=== PATIENT | male | born 1980 | race Hispanic/Latino ===

== ENCOUNTER 2017-04-08 19:45 | Inpatient (IN) | payer OTHER ==
[2017-04-08] MEDS ORDERED: Sodium Chloride 0.9% 1,000 ML IV STA (20:53)
[2017-04-08] MEDS ORDERED: Iohexol 240 (50 ml) PO ONE (20:53)
[2017-04-08] MEDS ORDERED: Iohexol 240 (50 ml) ONE (21:00)
[2017-04-08 21:22] LABS: BASO % 0.5 % (0.0-2.0); EOS # 0.2 K/uL (0.0-0.7); EOS % 2.5 % (0.0-4.0); HEMATOCRIT 43.5 % (35.0-51.0); LYMPH # 1.8 K/uL (1.0-4.3); LYMPH % 25.9 % (20.0-40.0); MEAN CELL VOLUME 91.8 fl (80.0-94.0); MEAN CORPUSCULAR HEMOGLOBIN 32.1 pg (27.0-31.0); MEAN PLATELET VOLUME 8.1 fl (7.2-11.7); MONO # 1.1 K/uL (0.0-0.8); MONO % 15.7 % (0.0-10.0); NEUT # 3.8 K/uL (1.8-7.0); NEUT % 55.4 % (50.0-75.0); RED CELL DISTRIBUTION WIDTH 12.5 % (11.5-14.5); WHITE BLOOD COUNT 6.8 K/uL (4.8-10.8)
[2017-04-08 21:36] LABS: ALB/GLOB RATIO 1.4 (1.0-2.1); ALKALINE PHOSPHATASE 40 U/L (38-126); ALT/SGPT 40 U/L (21-72); AST/SGOT 28 U/L (17-59); BILIRUBIN,TOTAL 1.7 mg/dl (0.2-1.3); BLOOD UREA NITROGEN 18 mg/dl (9-20); CALCIUM 8.5 mg/dL (8.4-10.2); CARBON DIOXIDE 32 mmol/L (22-30); CHLORIDE 101 mmol/L (98-107); GFR AFRICAN-AMERICAN > 60; GLUCOSE,RANDOM 90 mg/dL (75-110); LIPASE 57 U/L (23-300); POTASSIUM 3.6 MMOL/L (3.6-5.0); SODIUM 141 mmol/l (132-148); TOTAL PROTEIN 7.1 G/DL (6.3-8.2)
[2017-04-08 21:45] LABS: RBC URINE 1 /hpf (0-3); URINE BACTERIA RARE (<OCC); URINE BILIRUBIN NEGATIVE (NEGATIVE); URINE BLOOD NEGATIVE (NEGATIVE); URINE COLOR YELLOW (YELLOW); URINE GLUCOSE (UA) NEG (Normal); URINE KETONE NEGATIVE (NEGATIVE); URINE LEUKOCYTE ESTERASE NEG Leu/uL (Negative); URINE PROTEIN NEGATIVE (NEGATIVE); WBC URINE 1 /hpf (0-5)
[2017-04-08] MEDS ORDERED: Sodium Chloride 0.9% 50 ML IV ONE (22:36)
[2017-04-08] MEDS ORDERED: Iohexol 300 100 ML IJ ONE (22:36)
[2017-04-08] MEDS ORDERED: Iodixanol 320 MG/ML 100 ML BOTTLE IV ONE (22:41)
[2017-04-08] MEDS ORDERED: Oxycodone/Acetaminophen 5/325 mg Tab PO STA (23:58)
[2017-04-09] MEDS ORDERED: Simethicone 40 mg/0.6 ml Liquid (30 ml) PO STA (00:34)
[2017-04-09] MEDS ORDERED: Oxycodone/Acetaminophen 5/325 mg Tab ONE (00:42)
--- NOTE | 2017-04-09 00:50 | ED PDOC ---
"HPI: Abdomen Time Seen by Provider: 04/08/17 20:19 Chief Complaint (Nursing): Abdominal Pain Chief Complaint (Provider): abdominal pain History Per: Patient History/Exam Limitations: no limitations Associated Symptoms: Nausea, Loss Of Appetite. denies: Fever, Chills, Vomiting , Diarrhea, Back Pain, Chest Pain, Constipation, Urinary Symptoms Additional Complaint(s): 37yo M in ED for eval of diffuse abdominal pain with increased gas, nausea without vomiting and loose stool without fever, chills. Pt does admit to malaise and muscle cramping x 3d. Pt has had decreased PO intake. Pt admits to consuming salade with chicken over the weekend and noting discomfort since then. pt also c/o of SOB was seen at his pmd today and received an xray-normal results. PERC negative. Past Medical History Reviewed: Historical Data, Nursing Documentation, Vital Signs Vital Signs: Last Vital Signs Temp 98.6 F 04/08/17 23:54 Pulse 65 04/08/17 23:54 Resp 17 04/08/17 23:54 BP 124/67 04/08/17 23:54 Pulse Ox 98 04/09/17 01:10 - Medical History PMH: No Chronic Diseases - Family History Family History: States: No Known Family Hx - Home Medications Home Medications: Ambulatory Orders Medication Instructions Recorded Ibuprofen [Motrin] 600 mg PO Q6 PRN #20 tab 11/10/14 Ciprofloxacin HCl [Cipro] 500 mg PO BID #14 tab 04/09/17 Dicyclomine [Bentyl] 20 mg PO TID #16 tab 04/09/17 Metronidazole [Flagyl] 500 mg PO BID #14 tab 04/09/17 Simethicone [Gas-X Ultra Strength] 180 mg PO BID #20 sgl 04/09/17 - Allergies Allergies/Adverse Reactions: Allergies Allergy/AdvReac Type Severity Reaction Status Date / Time Penicillins Allergy RASH Verified 04/08/17 20:01 Review of Systems ROS Statement: Except As Marked, All Systems Reviewed And Found Negative Respiratory: Positive for: Shortness of Breath. Negative for: Cough Gastrointestinal: Positive for: Nausea, Abdominal Pain. Negative for: Vomiting , Diarrhea, Melena, Hematochezia, Hematemesis - Laboratory Results Result Diagrams: 04/08/17 21:15 04/08/17 21:15 - ECG ECG Rhythm: Positive for: Normal QRS, Normal ST Segment, Sinus Bradycardia O2 Sat by Pulse Oximetry: 98 - Progress ED Course And Treament: pt will get CT of abd to r/o infectious process and CT of chest with contrast r/ o PE for D-dimer is elevated. Orders Category Date Time Status ABD PELVIS PO & IV CONTRAST [CT] Stat CT 04/08/17 20:52 Taken CHEST,ABD,PEL W/IV&PO CONTRAST [CT] Stat CT 04/08/17 22:34 Taken ELECTROCARDIOGRAM Stat Cardiology 04/08/17 20:53 Ordered COMP METABOLIC PANEL Stat Chem 04/08/17 21:15 Completed LIPASE Stat Chem 04/08/17 21:15 Completed EKG-ED [EDNURTX] STAT ED Care 04/08/17 20:53 Active CHEST TWO VIEWS (PA/LAT) [RAD] Stat Exams 04/08/17 20:52 Stop Req CBC (WITH DIFFERENTIAL) Stat OLIVIA 04/08/17 21:15 Completed D DIMER [COAG] Stat OLIVIA 04/08/17 21:25 Completed Dicyclomine [Bentyl] Med 04/08/17 21:00 Discontinued 20 mg .ROUTE .STK-MED ONE Dicyclomine [Bentyl] Med 04/08/17 20:54 Discontinued 20 mg PO STAT STA Iodixanol [Visipaque 320 mg/ml 100 ml] Med 04/08/17 22:41 Discontinued 100 ml IV .STK-MED ONE Iohexol [Omnipaque 240 (50 ML)] Med 04/08/17 21:00 Discontinued 50 ml .ROUTE .STK-MED ONE Iohexol [Omnipaque 240 (50 ML)] Med 04/08/17 20:53 Discontinued 50 ml PO ONCE ONE Iohexol [Omnipaque 300 100 ML] Med 04/08/17 22:36 Discontinued 100 ml IJ .STK-MED ONE Ketorolac [Toradol] Med 04/08/17 22:21 Discontinued 30 mg IVP STAT STA Ondansetron [Zofran Inj] Med 04/08/17 21:00 Discontinued 4 mg .ROUTE .STK-MED ONE Ondansetron [Zofran Inj] Med 04/08/17 20:53 Discontinued 4 mg IVP STAT STA Simethicone [Mylicon Liq] Med 04/09/17 00:34 Discontinued 40 mg PO STAT STA Sodium Chloride 0.9% 1,000 ml Med 04/08/17 20:53 Discontinued IV 1,000 mls/hr Sodium Chloride 0.9% 50 ml Med 04/08/17 22:36 Discontinued IV .STK-MED oxyCODONE/Acetaminophen [Percocet 5/325 mg Tab] Med 04/09/17 00:42 Discontinued 1 tab .ROUTE .STK-MED ONE oxyCODONE/Acetaminophen [Percocet 5/325 mg Tab] Med 04/08/17 23:58 Discontinued 1 tab PO STAT STA Pail Bailer ONCE NURSING 04/08/17 20:53 Active IV Insertion (Saline Lock) ONCE NURSING 04/08/17 20:53 Active UA [URINALYSIS] Stat URINALYSIS 04/08/17 21:15 Completed Re-evaluation Time: 01:10 Condition: Improving,but remains with symptoms Medical Decision Making Medical Decision Making: Lower thorax: No acute findings. ABDOMEN: Liver: Unremarkable. No mass. Gallbladder and bile ducts: Unremarkable. No calcified stones. No ductal dilation. Pancreas: Unremarkable. No mass. No ductal dilation. Spleen: Unremarkable. No splenomegaly. Adrenals: Unremarkable. No mass. Kidneys and ureters: Unremarkable. No solid mass. No hydronephrosis. Stomach and bowel: Mild diffuse gas filled distention of the large bowel.There is no wall thickening or pericolonic stranding to suggest colitis. Moderately distended loops of mid small bowel. The distal small bowel tapers to normal caliber. There is contrast in the distal small bowel. Appendix: A normal appendix is identified. PELVIS: DANIEL RYAN | Preliminary Radiology Report Page 2 of 3 Bladder: Unremarkable. No mass. Reproductive: Unremarkable as visualized. ABDOMEN and PELVIS: Intraperitoneal space: Unremarkable. No free air. No significant fluid collection. Bones/joints: No acute fracture. No dislocation. Soft tissues: Unremarkable. Vasculature: Unremarkable. No abdominal aortic aneurysm. Lymph nodes: Unremarkable. No enlarged lymph nodes. IMPRESSION: Diffuse small and large bowel distention favoring ileus. EXAM: CT Angiography Chest With Intravenous Contrast CLINICAL HISTORY: 37 years old, male; Signs and symptoms; Abdominal tenderness; Additional info: SOB elevated ddimer TECHNIQUE: Axial computed tomographic angiography images of the chest with intravenous contrast using pulmonary embolism protocol. MIP reconstructed images were created and reviewed. Coronal and sagittal reformatted images were created and reviewed. CONTRAST: 100 mL of [id number] administered intravenously. COMPARISON: No relevant prior studies available. FINDINGS: Pulmonary arteries: There is subpleural atelectasis of the dependent portions of the lungs. No pulmonary embolism. Aorta: No acute findings. No thoracic aortic aneurysm. Lungs: Unremarkable. No mass. No consolidation. Pleural space: Unremarkable. No significant effusion. No pneumothorax. Heart: Unremarkable. No cardiomegaly. No significant pericardial effusion. No evidence of RV dysfunction. Bones/joints: No acute fracture. No dislocation. Soft tissues: Unremarkable. Lymph nodes: Unremarkable. No enlarged lymph nodes. DANIEL RYAN | Preliminary Radiology Report STORYBOARD ARTIST (QA) DISCREPANCY? If there is a discrepancy between the preliminary and final interpretation, please notify [employer] via [email or web address]. If you do not have access to our QA portal, call our QA team at [phone] CONFIDENTIALITY STATEMENT This report is intended only for the use of the referring physician, and only in accordance with law, If you received this in error, call [phone] Page 3 of 3 IMPRESSION: No pulmonary embolism. Thank you for allowing us to participate in the care of your patient. Dictated and Authenticated by: Rajani Chandler MD 04/09/2017 12:39 AM Eastern Time ([place] & [place]) Pt with ileus on CT without elevated WBC and normal VS however pain not controlled in ER-pt will require admission for intractable abd pain . ALEKSANDER Villalobos contacted-pt will be admitted with MD Mireille consult. Disposition - Clinical Impression Clinical Impression: Ileus - Patient ED Disposition Is Patient to be Admitted: Yes - Disposition Disposition Time: 00:54 Condition: FAIR Prescriptions: Ciprofloxacin HCl [Cipro] 500 mg PO BID #14 tab Dicyclomine [Bentyl] 20 mg PO TID #16 tab Metronidazole [Flagyl] 500 mg PO BID #14 tab Simethicone [Gas-X Ultra Strength] 180 mg PO BID #20 sgl Forms: [employer] ([place]), [facility] ED School/Work Excuse - Pt Status Changed To: Hospital Disposition Of: Inpatient - Admit Certification Admit to Inpatient:: After my assessment, the patient will require hospitalization for at least two midnights. This is because of the severity of symptoms shown, intensity of services needed, and/or the medical risk in this patient being treated as an outpatient. - POA Present On Arrival: None"
[2017-04-09] MEDS ORDERED: HYDROmorphone 0.5 mg/0.5 ml ISec IVP STA (01:04)
--- NOTE | 2017-04-09 06:17 | CT ---
PROCEDURE: CT Chest, Abdomen and Pelvis with intravenous contrast HISTORY: SOB elevated D-dimer COMPARISON: None. TECHNIQUE: IV dose administered: 100 cc Omnipaque 300 Mean Hounsfield unit values in the main pulmonary artery: 260.11 Radiation dose: Total exam DLP = 1624.74 mGy-cm. Maximum intensity projection (MIP) reconstructed images in the following planes: Axial only This CT exam was performed using one or more of the following dose reduction techniques: Automated exposure control, adjustment of the mA and/or kV according to patient size, and/or use of iterative reconstruction technique. FINDINGS: CT CHEST WITH CONTRAST: LUNGS: Clear. No nodule, mass or consolidation. MEDIASTINUM: Unremarkable. Normal caliber aorta and pulmonary arterial trunk. No aortic dissection. Normal size heart. LYMPH NODES: Unremarkable. PLEURA: Unremarkable. No pneumothorax. No pleural fluid. BONES: Unremarkable. OTHER FINDINGS: None. CT ABDOMEN AND PELVIS: LIVER: Hepatic steatosis. No focal masses. No intrahepatic bile duct dilatation or perihepatic ascites. GALLBLADDER AND BILE DUCTS: Unremarkable. PANCREAS: Unremarkable. No gross lesion or ductal dilatation. SPLEEN: Unremarkable. ADRENALS: Unremarkable. No mass. KIDNEYS AND URETERS: Unremarkable. No hydronephrosis. No solid mass. VASCULATURE: Unremarkable. No aortic aneurysm. BOWEL: Colonic distention Clarice small-bowel dilatation without evidence of mechanical obstruction. APPENDIX: Normal appendix. PERITONEUM: Unremarkable. No free fluid. No free air. LYMPH NODES: Unremarkable. No enlarged lymph nodes. BLADDER: Unremarkable. REPRODUCTIVE: Unremarkable. BONES: No acute fracture. OTHER FINDINGS: None. IMPRESSION: Negative study for pulmonary embolism. Negative study for aortic aneurysm or dissection. Distention of colon and small bowel likely ileus. Concordant results (preliminary interpretation) provided by [employer]. Procedure Completed: 23:27. Preliminary ([facility]) Report: Dictated and Authenticated: 00:39. Final Interpretation: 06:15.April 09, 2017.
[2017-04-09] MEDS ORDERED: Sodium Chloride 0.9% 1,000 ML IV SCH (06:30)
[2017-04-09] MEDS ORDERED: Oxycodone/Acetaminophen 5/325 mg Tab PO PRN (06:30)
--- NOTE | 2017-04-09 07:33 | CP.PCM.PN ---
Subjective - Date & Time of Evaluation Date of Evaluation: 04/09/17 Time of Evaluation: 07:33 Objective - Vital Signs/Intake and Output Vital Signs (last 24 hours): Temp Pulse Resp BP Pulse Ox 98 F 55 L 19 122/70 95 04/09/17 02:15 04/09/17 05:03 04/09/17 05:03 04/09/17 02:15 04/09/17 05:03 - Medications Medications: Current Medications Famotidine (Pepcid) 20 mg IVP Q12 LEANN Sodium Chloride (Sodium Chloride 0.9%) 1,000 mls @ 125 mls/hr IV .Q8H LEANN Stop: 04/10/17 06:31 Last Admin: 04/09/17 06:53 Dose: 125 mls/hr Ketorolac Tromethamine (Toradol) 30 mg IVP Q6 PRN PRN Reason: Pain, moderate (4-7) Ondansetron HCl (Zofran Inj) 4 mg IVP Q6 PRN PRN Reason: Nausea/Vomiting Oxycodone/Acetaminophen (Percocet 5/325 Mg Tab) 1 tab PO Q4 PRN PRN Reason: Pain, severe (8-10) Stop: 04/12/17 06:31 Pneumococcal Polyvalent Vaccine (Pneumovax 23 Vaccine) 0.5 ml IM .ONCE ONE Stop: 04/09/17 09:01 - Labs Labs: 04/08/17 21:15 04/08/17 21:15
--- NOTE | 2017-04-09 07:34 | CP.PCM.HP ---
History of Present Illness - History of Present Illness History of Present Illness: pt admitted for ileus, po intol and intractible abd pain. no f/c, n/v/d. states s/s started after having salad and felt some sob as well. ddimer was elevated but ct chest negative. ct abd/pelvis demonstrates ileus. pt is passing flatus. minimal abd pain at present. Present on Admission - Present on Admission Any Indicators Present on Admission: No Review of Systems - Respiratory Respiratory: As Per HPI, Dyspnea on Exertion - Gastrointestinal Gastrointestinal: As Per HPI, Abdominal Pain Past Patient History - Past Medical History & Family History Past Medical History?: No - Past Social History Smoking Status: Never Smoked - CARDIAC Hx Cardiac Disorders: No - PULMONARY Hx Respiratory Disorders: No - NEUROLOGICAL Hx Neurological Disorder: No - HEENT Hx HEENT Problems: No - RENAL Hx Chronic Kidney Disease: No - ENDOCRINE/METABOLIC Hx Endocrine Disorders: No - HEMATOLOGICAL/ONCOLOGICAL Hx Blood Disorders: No - INTEGUMENTARY Hx Dermatological Problems: No - MUSCULOSKELETAL/RHEUMATOLOGICAL Hx Musculoskeletal Disorders: No Hx Falls: Yes - GASTROINTESTINAL Hx Gastrointestinal Disorders: No - GENITOURINARY/GYNECOLOGICAL Hx Genitourinary Disorders: No - PSYCHIATRIC Hx Psychophysiologic Disorder: No Hx Substance Use: No - SURGICAL HISTORY Hx Surgeries: No - ANESTHESIA Hx Anesthesia: No Hx Anesthesia Reactions: No Meds Home Medications: Home Medication List Medication Instructions Recorded Confirmed Type Ciprofloxacin HCl [Cipro] 500 mg PO BID #14 tab 04/09/17 Rx Metronidazole [Flagyl] 500 mg PO BID #14 tab 04/09/17 Rx Simethicone [Gas-X Ultra Strength] 180 mg PO BID #20 sgl 04/09/17 Rx Allergies/Adverse Reactions: Allergies Allergy/AdvReac Type Severity Reaction Status Date / Time bismuth subsalicylate Allergy RASH Verified 04/09/17 07:02 [From Pepto-Bismol] Penicillins Allergy RASH Verified 04/08/17 20:01 Physical Exam - Constitutional Appears: Well, Non-toxic, No Acute Distress - Head Exam Head Exam: ATRAUMATIC, NORMAL INSPECTION, NORMOCEPHALIC - Eye Exam Eye Exam: EOMI, Normal appearance, PERRL Pupil Exam: NORMAL ACCOMODATION, PERRL - ENT Exam ENT Exam: Mucous Membranes Moist, Normal Exam - Neck Exam Neck exam: Positive for: Normal Inspection - Respiratory Exam Respiratory Exam: Clear to Auscultation Bilateral, NORMAL BREATHING PATTERN - Cardiovascular Exam Cardiovascular Exam: REGULAR RHYTHM, RRR, +S1, +S2 - GI/Abdominal Exam GI & Abdominal Exam: Normal Bowel Sounds, Soft. absent: Tenderness - Extremities Exam Extremities exam: Positive for: full ROM, normal capillary refill, normal inspection, pedal pulses present - Back Exam Back exam: NORMAL INSPECTION - Neurological Exam Neurological exam: Alert, CN II-XII Intact, Normal Gait, Oriented x3, Reflexes Normal - Psychiatric Exam Psychiatric exam: Normal Affect, Normal Mood - Skin Skin Exam: Dry, Intact, Normal Color, Warm Results - Vital Signs Recent Vital Signs: Last Vital Signs Temp 98 F 04/09/17 02:15 Pulse 55 L 04/09/17 05:03 Resp 19 04/09/17 05:03 BP 122/70 04/09/17 02:15 Pulse Ox 95 04/09/17 05:03 - Labs Result Diagrams: 04/08/17 21:15 04/08/17 21:15 Labs: Laboratory Results - last 24 hr 04/08/17 04/08/17 04/08/17 21:15 21:15 21:15 WBC 6.8 RBC 4.74 Hgb 15.2 Hct 43.5 MCV 91.8 MCH 32.1 H MCHC 35.0 RDW 12.5 Plt Count 137 MPV 8.1 Neut % (Auto) 55.4 Lymph % (Auto) 25.9 [place] % (Auto) 15.7 H Eos % (Auto) 2.5 Baso % (Auto) 0.5 Neut # 3.8 Lymph # 1.8 [place] # 1.1 H Eos # 0.2 Baso # 0.0 D-Dimer, Quantitative Sodium 141 Potassium 3.6 Chloride 101 Carbon Dioxide 32 H Anion Gap 12 BUN 18 Creatinine 1.0 Est GFR ( Amer) > 60 Est GFR (Non-Af Amer) > 60 Random Glucose 90 Calcium 8.5 Total Bilirubin 1.7 H AST 28 ALT 40 Alkaline Phosphatase 40 Total Protein 7.1 Albumin 4.1 Globulin 2.9 Albumin/Globulin Ratio 1.4 Lipase 57 Urine Color Yellow Urine Clarity Slighty-cloudy Urine pH 6.0 Ur Specific [place] 1.012 Urine Protein Negative Urine Glucose (UA) Neg Urine Ketones Negative Urine Blood Negative Urine Nitrate Negative Urine Bilirubin Negative Urine Urobilinogen 2.0 Ur Leukocyte Esterase Neg Urine RBC (Auto) 1 Urine Microscopic WBC 1 Urine Bacteria Rare 04/08/17 21:25 WBC RBC Hgb Hct MCV MCH MCHC RDW Plt Count MPV Neut % (Auto) Lymph % (Auto) [place] % (Auto) Eos % (Auto) Baso % (Auto) Neut # Lymph # [place] # Eos # Baso # D-Dimer, Quantitative 772 H Sodium Potassium Chloride Carbon Dioxide Anion Gap BUN Creatinine Est GFR ( Amer) Est GFR (Non-Af Amer) Random Glucose Calcium Total Bilirubin AST ALT Alkaline Phosphatase Total Protein Albumin Globulin Albumin/Globulin Ratio Lipase Urine Color Urine Clarity Urine pH Ur Specific [place] Urine Protein Urine Glucose (UA) Urine Ketones Urine Blood Urine Nitrate Urine Bilirubin Urine Urobilinogen Ur Leukocyte Esterase Urine RBC (Auto) Urine Microscopic WBC Urine Bacteria Assessment & Plan (1) DVT prophylaxis Assessment and Plan: scd and ae hose ambulation lovenox if admitted over 24h Status: Acute (2) Dyspnea Assessment and Plan: no further complaints. ct negative ?? r/t food poisoning Status: Acute (3) Ileus Assessment and Plan: ?? r/t ffood poisoning pain and nausea control cld gi consult ivf adv diet as tolerated Status: Acute Decision To Admit - Pt Status Changed To: Hospital Disposition Of: Observation - . Bed Request Type: Med/Surg Admitting Physician: Narciso Lozada
[2017-04-09] MEDS ORDERED: Pneumococcal 23-Valent Vaccine IM ONE (09:00)
--- NOTE | 2017-04-09 11:04 | CARD ---
APPROVED REPORT EKG Measurement Heart [id number] CT [id number] <Conclusion> Sinus bradycardia
[2017-04-09 16:28] VITALS: BP 114/69; PULSE 57; RESP 18; TEMP 98; O2SAT 97
--- NOTE | 2017-04-09 18:42 | CP.PCM.DIS ---
Provider - Provider Date of Admission: 04/09/17 01:01 Attending physician: Narciso Lozada MD Time Spent in preparation of Discharge (in minutes): 15 Diagnosis - Discharge Diagnosis (1) DVT prophylaxis Status: Acute (2) Dyspnea Status: Acute (3) Ileus Status: Acute Hospital Course - Lab Results Lab Results: Most Recent Lab Values WBC 6.8 K/uL (4.8-10.8) 04/08/17 21:15 RBC 4.74 Mil/uL (4.40-5.90) 04/08/17 21:15 Hgb 15.2 g/dL (12.0-18.0) 04/08/17 21:15 Hct 43.5 % (35.0-51.0) 04/08/17 21:15 MCV 91.8 fl (80.0-94.0) 04/08/17 21:15 MCH 32.1 pg (27.0-31.0) H 04/08/17 21:15 MCHC 35.0 g/dL (33.0-37.0) 04/08/17 21:15 RDW 12.5 % (11.5-14.5) 04/08/17 21:15 Plt Count 137 K/uL (130-400) 04/08/17 21:15 MPV 8.1 fl (7.2-11.7) 04/08/17 21:15 Neut % (Auto) 55.4 % (50.0-75.0) 04/08/17 21:15 Lymph % (Auto) 25.9 % (20.0-40.0) 04/08/17 21:15 [place] % (Auto) 15.7 % (0.0-10.0) H 04/08/17 21:15 Eos % (Auto) 2.5 % (0.0-4.0) 04/08/17 21:15 Baso % (Auto) 0.5 % (0.0-2.0) 04/08/17 21:15 Neut # 3.8 K/uL (1.8-7.0) 04/08/17 21:15 Lymph # 1.8 K/uL (1.0-4.3) 04/08/17 21:15 [place] # 1.1 K/uL (0.0-0.8) H 04/08/17 21:15 Eos # 0.2 K/uL (0.0-0.7) 04/08/17 21:15 Baso # 0.0 K/uL (0.0-0.2) 04/08/17 21:15 D-Dimer, Quantitative 772 ng/mlDDU (0-230) H 04/08/17 21:25 Sodium 141 mmol/l (132-148) 04/08/17 21:15 Potassium 3.6 MMOL/L (3.6-5.0) 04/08/17 21:15 Chloride 101 mmol/L (98-107) 04/08/17 21:15 Carbon Dioxide 32 mmol/L (22-30) H 04/08/17 21:15 Anion Gap 12 (10-20) 04/08/17 21:15 BUN 18 mg/dl (9-20) 04/08/17 21:15 Creatinine 1.0 mg/dL (0.8-1.5) 04/08/17 21:15 Est GFR ( Amer) > 60 04/08/17 21:15 Est GFR (Non-Af Amer) > 60 04/08/17 21:15 Random Glucose 90 mg/dL (75-110) 04/08/17 21:15 Calcium 8.5 mg/dL (8.4-10.2) 04/08/17 21:15 Total Bilirubin 1.7 mg/dl (0.2-1.3) H 04/08/17 21:15 AST 28 U/L (17-59) 04/08/17 21:15 ALT 40 U/L (21-72) 04/08/17 21:15 Alkaline Phosphatase 40 U/L (38-126) 04/08/17 21:15 Total Protein 7.1 G/DL (6.3-8.2) 04/08/17 21:15 Albumin 4.1 g/dL (3.5-5.0) 04/08/17 21:15 Globulin 2.9 gm/dL (2.2-3.9) 04/08/17 21:15 Albumin/Globulin Ratio 1.4 (1.0-2.1) 04/08/17 21:15 Lipase 57 U/L (23-300) 04/08/17 21:15 Urine Color Yellow (YELLOW) 04/08/17 21:15 Urine Clarity Slighty-cloudy (Clear) 04/08/17 21:15 Urine pH 6.0 (5.0-8.0) 04/08/17 21:15 Ur Specific [place] 1.012 (1.003-1.030) 04/08/17 21:15 Urine Protein Negative mg/dL (NEGATIVE) 04/08/17 21:15 Urine Glucose (UA) Neg mg/dL (Normal) 04/08/17 21:15 Urine Ketones Negative mg/dL (NEGATIVE) 04/08/17 21:15 Urine Blood Negative (NEGATIVE) 04/08/17 21:15 Urine Nitrate Negative (NEGATIVE) 04/08/17 21:15 Urine Bilirubin Negative (NEGATIVE) 04/08/17 21:15 Urine Urobilinogen 2.0 mg/dL (0.2-1.0) 04/08/17 21:15 Ur Leukocyte Esterase Neg [place]/uL (Negative) 04/08/17 21:15 Urine RBC (Auto) 1 /hpf (0-3) 04/08/17 21:15 Urine Microscopic WBC 1 /hpf (0-5) 04/08/17 21:15 Urine Bacteria Rare (<OCC) 04/08/17 21:15 Discharge Exam - Head Exam Head Exam: ATRAUMATIC, NORMAL INSPECTION, NORMOCEPHALIC Discharge Plan - Discharge Medications Prescriptions: Aluminum Hydroxide/Magnesium H [Maalox 30 ml] 30 ml PO Q6 PRN #250 ml PRN Reason: Dyspepsia Pantoprazole [Protonix] 40 mg PO DAILY #30 ect Simethicone [Gas-X Ultra Strength] 180 mg PO BID #20 sgl - Follow Up Plan Condition: FAIR Disposition: HOME/ ROUTINE Instructions: Ileus (DC) Additional Instructions: pt doing well, fransisco dinner-bland. cleared by gi for dc home final dx-ileus likely r/t food poisoning. po as fr[place]isco. hydration, f/u rmg 2 days, rted prn, med sper med rec meds escribed Referrals: Daniele Fournier MD, PhD [Staff Provider] - Narciso Lozada MD [Staff Provider] -
== END 2017-04-09 19:00 | disposition home or self-care (01) | DRG 390 ==
LOC: H.ER 19:45 → H.ERHOLD 04-09 01:01 → H.MEDSURG1 04-09 02:15
PROVIDERS: ADMIT Family Medicine; ATTEND Family Medicine
PROC: 3E0234Z Introduction of Serum, Toxoid and Vaccine into Muscle, Percutaneous Approach (ICD-10-PCS; principal; 2017-04-09)
DX: K56.7 Ileus, unspecified (principal); R06.00 Dyspnea, unspecified; Z23 Encounter for immunization; Z88.0 Allergy status to penicillin

== ENCOUNTER 2018-07-21 20:26 | Emergency (ER) | payer OTHER ==
[2018-07-21 20:38] VITALS: BP 142/82; PULSE 68; RESP 18; TEMP 97.6; O2SAT 97
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
[2018-07-21 21:35] LABS: BASO # 0.1 K/uL (0.0-0.2); EOS # 0.2 K/uL (0.0-0.7); EOS % 2.5 % (0.0-4.0); HEMOGLOBIN 15.6 g/dL (12.0-18.0); LYMPH % 38.4 % (20.0-40.0); MEAN CELL VOLUME 91.1 fl (80.0-94.0); MEAN CORPUSCULAR HEMOGLOBIN 32.1 pg (27.0-31.0); MEAN CORPUSCULAR HGB CONC 35.3 g/dL (33.0-37.0); MEAN PLATELET VOLUME 7.8 fl (7.2-11.7); MONO # 0.6 K/uL (0.0-0.8); MONO % 7.6 % (0.0-10.0); NEUT # 3.9 K/uL (1.8-7.0); NEUT % 50.5 % (50.0-75.0); RBC 4.86 Mil/uL (4.40-5.90); RED CELL DISTRIBUTION WIDTH 12.4 % (11.5-14.5); WHITE BLOOD COUNT 7.7 K/uL (4.8-10.8)
[2018-07-21 21:47] LABS: URINE BILIRUBIN NEGATIVE (NEGATIVE); URINE BLOOD NEGATIVE (NEGATIVE); URINE CLARITY SLIGHTY-CLOUDY (Clear); URINE COLOR YELLOW (YELLOW); URINE GLUCOSE (UA) NEG (NEGATIVE); URINE LEUKOCYTE ESTERASE NEG Leu/uL (Negative); URINE PROTEIN NEGATIVE (NEGATIVE); URINE UROBILINOGEN 0.2-1.0 mg/dL (0.2-1.0)
[2018-07-21 22:19] LABS: BLOOD UREA NITROGEN 23 mg/dl (9-20); GFR NON-AFRICAN AMERICAN > 60
[2018-07-21 22:21] LABS: ALB/GLOB RATIO 1.3 (1.0-2.1); ALBUMIN 4.6 g/dL (3.5-5.0); CALCIUM 9.6 mg/dL (8.4-10.2)
[2018-07-21 22:22] LABS: AST/SGOT 43 U/L (17-59)
[2018-07-21 22:23] LABS: ALT/SGPT 34 U/L (21-72)
[2018-07-21 22:24] LABS: AMYLASE 75 U/L (30-110)
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
[2018-07-22 12:42] LABS: HEPATITIS B SURFACE AG Negative (NEGATIVE)
[2018-07-22 12:48] LABS: HEPATITIS A IGM NEGATIVE (NEGATIVE); HEPATITIS B CORE AB NEGATIVE (NEGATIVE)
[2018-07-22 13:00] LABS: HEPATITIS C ANTIBODY NEGATIVE (NEGATIVE)
== END 2018-07-21 22:40 | disposition home or self-care (01) ==
LOC: H.ER 20:26
DX: Z77.21 Contact with and (suspected) exposure to potentially hazardous body fluids (principal); S80.12XA Contusion of left lower leg, initial encounter; S50.812A Abrasion of left forearm, initial encounter; Y04.0XXA Assault by unarmed brawl or fight, initial encounter; Y99.0 Civilian activity done for income or pay; Z88.0 Allergy status to penicillin
CPT/HCPCS: 73590; 80053; 80074; 81003; 82150; 85025; 86592; 87390; 96372; 99285; J1885

== ENCOUNTER 2018-07-23 13:39 | Emergency (ER) | payer OTHER ==
[2018-07-23 13:43] VITALS: BP 128/82; PULSE 75; RESP 16; TEMP 97.8; O2SAT 97
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
--- NOTE | 2018-07-23 16:06 | ED PDOC ---
HPI: Back Time Seen by Provider: 07/23/18 14:32 Chief Complaint (Nursing): Back Pain Chief Complaint (Provider): Cervical Strain Past Medical History Vital Signs: Last Vital Signs Temp 97.8 F 07/23/18 13:40 Pulse 75 07/23/18 13:40 Resp 16 07/23/18 13:40 BP 128/82 07/23/18 13:40 Pulse Ox 97 07/23/18 13:40 - Medical History PMH: Denies: Chronic Kidney Disease - Family History Family History: States: Unknown Family Hx - Immunization History Hx Tetanus Toxoid Vaccination: Yes - Home Medications Home Medications: Ambulatory Orders Medication Instructions Recorded Aluminum Hydroxide/Magnesium H 30 ml PO Q6 PRN #250 ml 04/09/17 [Maalox 30 ml] Pantoprazole [Protonix] 40 mg PO DAILY #30 ect 04/09/17 Simethicone [Gas-X Ultra Strength] 180 mg PO BID #20 sgl 04/09/17 Ibuprofen [Motrin Tab] 800 mg PO Q8 PRN #21 tab 07/21/18 Cyclobenzaprine [Flexeril] 10 mg PO TID #27 tab 07/23/18 Diclofenac Sodium [Voltaren] 1 gm TP TID #100 gm 07/23/18 - Allergies Allergies/Adverse Reactions: Allergies Allergy/AdvReac Type Severity Reaction Status Date / Time bismuth subsalicylate Allergy RASH Verified 07/23/18 13:40 [From Pepto-Bismol] Penicillins Allergy RASH Verified 07/23/18 13:40 - ECG O2 Sat by Pulse Oximetry: 97 Disposition - Clinical Impression Clinical Impression: Shoulder pain, acute, Muscle spasm - Disposition Referrals: [facility] [Outside] [facility] [Outside] Condition: STABLE Prescriptions: Cyclobenzaprine [Flexeril] 10 mg PO TID #27 tab Diclofenac Sodium [Voltaren] 1 gm TP TID #100 gm Instructions: Muscle Spasms (DC), Shoulder Pain (DC) Forms: [facility] (Tuvaluan), [facility] ED School/Work Excuse
== END 2018-07-23 16:29 | disposition home or self-care (01) ==
LOC: H.ER 13:39
DX: M25.511 Pain in right shoulder (principal); M48.02 Spinal stenosis, cervical region

== ENCOUNTER 2018-10-27 18:43 | Emergency (ER) | payer OTHER ==
[2018-10-27 18:49] VITALS: BP 120/81; TEMP 97.8
[2018-10-27] MEDS ORDERED: Sodium Chloride 0.9% 1,000 ML IV STA (19:26)
[2018-10-27 20:09] LABS: BASO % 0.4 % (0.0-2.0); EOS # 0.2 K/uL (0.0-0.7); EOS % 2.8 % (0.0-4.0); HEMOGLOBIN 14.8 g/dL (12.0-18.0); LYMPH # 2.2 K/uL (1.0-4.3); MEAN CELL VOLUME 93.1 fl (80.0-94.0); MEAN CORPUSCULAR HEMOGLOBIN 31.9 pg (27.0-31.0); MEAN CORPUSCULAR HGB CONC 34.2 g/dL (33.0-37.0); MEAN PLATELET VOLUME 8.5 fl (7.2-11.7); MONO # 0.5 K/uL (0.0-0.8); NEUT # 3.2 K/uL (1.8-7.0); NEUT % 52.8 % (50.0-75.0); RBC 4.66 Mil/uL (4.40-5.90)
[2018-10-27 20:20] LABS: ALB/GLOB RATIO 1.5 (1.0-2.1); ALBUMIN 4.5 g/dL (3.5-5.0); ALT/SGPT 41 U/L (21-72); AST/SGOT 35 U/L (17-59); BLOOD UREA NITROGEN 17 mg/dl (9-20); CALCIUM 9.1 mg/dL (8.4-10.2); GFR NON-AFRICAN AMERICAN > 60; LIPASE 96 U/L (23-300)
--- NOTE | 2018-10-27 20:25 | ED PDOC ---
HPI: Abdomen Time Seen by Provider: 10/27/18 18:58 Chief Complaint (Nursing): Abdominal Pain Chief Complaint (Provider): Abdominal pain History Per: Patient History/Exam Limitations: no limitations Onset/Duration Of Symptoms: Days (3) Outside of [place] travel?: No Current Symptoms Are (Timing): Still Present Additional History Per: Patient Additional Complaint(s): 38yo male, otherwise well, comes to ER reporting abdominal pain x 3 days, started after he ate a salad 3 days ago. Patient states he feels bloated, and feels like he has to have a bowel movement, but is unable to. He also reports passing excessive amounts of gas. Patient has been PO tolerant, denies any nausea or vomiting. Patient also denies any black or bloody stools. He denies any fever, or other urinary [id number]. Patient was seen in this ER 1.5 years ago for similar and was diagnosed with ileus. No additional complaints. Past Medical History Reviewed: Historical Data, Nursing Documentation, Vital Signs Vital Signs: Last Vital Signs Temp 97.8 F 10/27/18 18:48 Pulse 55 L 10/27/18 18:48 Resp 16 10/27/18 18:48 BP 120/81 10/27/18 18:48 Pulse Ox 100 10/27/18 18:48 Primary Care Provider: FAMILY PROVIDER,NO - Medical History PMH: No Chronic Diseases Denies: Chronic Kidney Disease - Surgical History Surgical History: No Surg Hx - Family History Family History: States: No Known Family Hx - Social History Current smoker - smoking cessation education provided: No Alcohol: Other (rare) Drugs: Denies - Immunization History Hx Tetanus Toxoid Vaccination: Yes - Home Medications Home Medications: Ambulatory Orders Medication Instructions Recorded Aluminum Hydroxide/Magnesium H 30 ml PO Q6 PRN #250 ml 04/09/17 [Maalox 30 ml] Pantoprazole [Protonix] 40 mg PO DAILY #30 ect 04/09/17 Simethicone [Gas-X Ultra Strength] 180 mg PO BID #20 sgl 04/09/17 Ibuprofen [Motrin Tab] 800 mg PO Q8 PRN #21 tab 07/21/18 Cyclobenzaprine [Flexeril] 10 mg PO TID #27 tab 07/23/18 Diclofenac Sodium [Voltaren] 1 gm TP TID #100 gm 02/13/19 Docusate [Colace] 100 mg PO BID PRN #20 cap 10/28/18 - Allergies Allergies/Adverse Reactions: Allergies Allergy/AdvReac Type Severity Reaction Status Date / Time bismuth subsalicylate Allergy RASH Verified 10/27/18 18:50 [From Pepto-Bismol] Penicillins Allergy RASH Verified 10/27/18 18:50 Review of Systems ROS Statement: Except As Marked, All Systems Reviewed And Found Negative Constitutional: Negative for: Fever Gastrointestinal: Positive for: Abdominal Pain. Negative for: Nausea, Vomiting, Melena, Hematochezia Genitourinary Male: Negative for: Dysuria, Frequency, Hematuria Physical Exam - Reviewed Nursing Documentation Reviewed: Yes Vital Signs Reviewed: Yes - Physical Exam Appears: Positive for: Non-toxic, In Acute Distress (mild painful distress) Head Exam: Positive for: ATRAUMATIC, NORMAL INSPECTION, NORMOCEPHALIC Skin: Positive for: Normal Color Eye Exam: Positive for: Normal appearance ENT: Positive for: Other (tacky mucus membranes) Neck: Positive for: Supple Cardiovascular/Chest: Positive for: Regular Rate, Rhythm Respiratory: Positive for: Normal Breath Sounds Gastrointestinal/Abdominal: Positive for: Soft, Tenderness (diffuse unlocalized tenderness), Distended (softly distended). Negative for: Mass, Guarding, Rebound Back: Positive for: Normal Inspection Extremity: Positive for: Normal ROM Neurological/Psych: Positive for: Awake, Alert, Normal Tone - Laboratory Results Result Diagrams: 10/27/18 20:02 10/27/18 20:02 Lab Results: Total Bilirubin 1.1 mg/dl (0.2-1.3) 10/27/18 20:02 AST 35 U/L (17-59) 10/27/18 20:02 ALT 41 U/L (21-72) 10/27/18 20:02 Alkaline Phosphatase 45 U/L (38-126) 10/27/18 20:02 Total Protein 7.6 G/DL (6.3-8.2) 10/27/18 20:02 Albumin 4.5 g/dL (3.5-5.0) 10/27/18 20:02 Globulin 3.1 gm/dL (2.2-3.9) 10/27/18 20:02 Albumin/Globulin Ratio 1.5 (1.0-2.1) 10/27/18 20:02 Lipase 96 U/L (23-300) 10/27/18 20:02 - ECG O2 Sat by Pulse Oximetry: 100 (RA) Pulse Ox Interpretation: Normal Medical Decision Making Medical Decision Making: IMpression: Abdominal pain Differential: Obstruction, constipation, ileus, colitis Plan: -- Labs -- XR Abdomen -- Toradol 30mg IV -- Zofran 4mg IV -- IV Fluids 2034 XR abdomen reviewed, CT Abdomen/Pelvis ordered for further evaluation. Scribe Attestation: Documented by Breana Chow acting as a scribe for Christi Field MD. Provider Scribe Attestation: All medical record entries made by the Scribe were at my direction and personally dictated by me. I have reviewed the chart and agree that the record accurately reflects my personal performance of the history, physical exam, medical decision making, and the department course for this patient. I have also personally directed, reviewed, and agree with the discharge instructions and disposition. Time: 0000 -- Patient endorsed to Dr. Santana, pending CT, reassessment, and final ER disposition. Scribe Attestation: Documented by Jl Glaser, acting as a scribe for Christi Field MD. Provider Scribe Attestation: All medical record entries made by the Scribe were at my direction and personally dictated by me. I have reviewed the chart and agree that the record accurately reflects my personal performance of the history, physical exam, medical decision making, and the department course for this patient. I have also personally directed, reviewed, and agree with the discharge instructions and disposition. Disposition - Clinical Impression Clinical Impression: Abdominal pain, Constipation, Fatty liver - Patient ED Disposition Is Patient to be Admitted: Transfer of Care Counseled Patient/Family Regarding: Studies Performed, Diagnosis - Disposition Disposition: Transfer of Care Disposition Time: 00:00 Condition: STABLE Prescriptions: Docusate [Colace] 100 mg PO BID PRN #20 cap PRN Reason: Constipation Forms: [facility] (Greek) Patient Signed Over To: Deanna Santana Handoff Comments: Pending CT, re-evaluation and final ER disposition
[2018-10-27] MEDS ORDERED: Iohexol 240 (50 ml) PO STA (20:30)
[2018-10-27] MEDS ORDERED: Iohexol 240 (50 ml) ONE (20:34)
[2018-10-27] MEDS ORDERED: Sodium Chloride 0.9% 50 ML IV ONE (23:48)
[2018-10-27] MEDS ORDERED: Iohexol 300 100 ML IJ ONE (23:48)
--- NOTE | 2018-10-28 00:43 | ED PDOC ---
- Laboratory Results Result Diagrams: 10/27/18 20:02 10/27/18 20:02 Lab Results: Total Bilirubin 1.1 mg/dl (0.2-1.3) 10/27/18 20:02 AST 35 U/L (17-59) 10/27/18 20:02 ALT 41 U/L (21-72) 10/27/18 20:02 Alkaline Phosphatase 45 U/L (38-126) 10/27/18 20:02 Total Protein 7.6 G/DL (6.3-8.2) 10/27/18 20:02 Albumin 4.5 g/dL (3.5-5.0) 10/27/18 20: Globulin 3.1 gm/dL (2.2-3.9) 10/27/18 20: Albumin/Globulin Ratio 1.5 (1.0-2.1) 10/27/18 20: Lipase 96 U/L (23-300) 10/27/18 20:02 - ECG O2 Sat by Pulse Oximetry: 100 (RA) Pulse Ox Interpretation: Normal Medical Decision Making Medical Decision Making: Time: 0000 -- Patient endorsed to me by Dr. Field, pending CT, reassessment, and final ER disposition. Time: 0104 EXAM: CT Abdomen and Pelvis with IV contrast CLINICAL HISTORY: Abdominal distention h/o ileus questionable sig on x ray TECHNIQUE: Axial computed tomography images of the abdomen and pelvis with intravenous contrast. 795.92 mGy-cm CONTRAST: With; [id number] 95ML COMPARISON: CT\SD - CHEST,ABD,PEL W/IV PO CONTRAST - 04/08/2017 11:16 PM EDT FINDINGS: LUNG BASES: Mild linear atelectasis in the visualized lower lung zones. LIVER: There is mild diffuse fatty infiltration of liver. GALLBLADDER AND BILE DUCTS: The gallbladder appears within normal limits. No radioopaque gallstones are seen. No biliary ductal dilatation is evident. PANCREAS: Unremarkable. SPLEEN: Unremarkable. ADRENAL GLANDS: Unremarkable. KIDNEYS, URETERS, AND BLADDER: The kidneys appear within normal limits. There is no hydronephrosis or hydroureter. No urinary calculi are seen. STOMACH AND BOWEL: There is constipation in the colon. No evidence for bowel obstruction. APPENDIX: Normal appendix identified in the right lower quadrant. PERITONEUM: No free fluid. No free air. LYMPH NODES: No lymphadenopathy is evident. REPRODUCTIVE: Unremarkable as visualized. VASCULATURE: No evidence of abdominal aortic aneurysm. BONES: Mild multilevel degenerative spine changes. IMPRESSION: 1. There is mild diffuse fatty infiltration of liver. 2. There is constipation in the colon. 3. No evidence for bowel obstruction or ileus, As clinically questioned. 4. Additional, incidental findings as described above. Electronically signed on October 28, 2018 1:04:36 AM EDT by: Brady Ohara M.D., Certified by [facility], Diagnostic Radiology Time: 0124 -- On re-evaluation, patient reports an improvement in symptoms. Discussed findings with patient. Patient is stable for discharge home with a diagnosis of constipation. he follows in the clinic, instructed to contonue doing so. Scribe Attestation: Documented by Jl Glaser, acting as a scribe forDeanna Santana MD. Provider Scribe Attestation: All medical record entries made by the Scribe were at my direction and personally dictated by me. I have reviewed the chart and agree that the record accurately reflects my personal performance of the history, physical exam, medical decision making, and the department course for this patient. I have also personally directed, reviewed, and agree with the discharge instructions and disposition. Disposition - Clinical Impression Clinical Impression: Abdominal pain, Constipation, Fatty liver - POA Present On Arrival: None - Disposition Disposition: Routine/Home Disposition Time: 01:05 Condition: IMPROVED Additional Instructions: follow up with your doctor in 2 days eat high fiber diet supplement with colace return to the ED with any worsening or concerning symptoms Prescriptions: Docusate [Colace] 100 mg PO BID PRN #20 cap PRN Reason: Constipation Instructions: Constipation in Adults, High Fiber Diet Forms: [facility] (Maldivian)
[2018-10-28 02:30] VITALS: PULSE 65; RESP 18
[2018-10-28 04:05] VITALS: O2SAT 100
--- NOTE | 2018-10-28 09:27 | CT ---
Date of service: 10/27/2018 PROCEDURE: CT Abdomen and Pelvis with contrast HISTORY: abd distension h/o ileus questionable sig on xray COMPARISON: None. TECHNIQUE: Contrast dose: 95 mL Omnipaque 300 Radiation dose: Total exam DLP = 795.92 mGy-cm. This CT exam was performed using one or more of the following dose reduction techniques: Automated exposure control, adjustment of the mA and/or kV according to patient size, and/or use of iterative reconstruction technique. FINDINGS: LOWER THORAX: Unremarkable. LIVER: Unremarkable. No gross lesion or ductal dilatation. GALLBLADDER AND BILE DUCTS: Unremarkable. PANCREAS: Unremarkable. No gross lesion or ductal dilatation. SPLEEN: Unremarkable. ADRENALS: Unremarkable. No mass. KIDNEYS AND URETERS: Unremarkable. No hydronephrosis. No solid mass. VASCULATURE: Unremarkable. No aortic aneurysm. No aortic atherosclerotic calcification or mural plaque present. BOWEL: No bowel obstruction. No abnormal bowel loops. No evidence of ileus. Unremarkable sigmoid colon. APPENDIX: Normal appendix. PERITONEUM: Unremarkable. No free fluid. No free air. LYMPH NODES: Unremarkable. No enlarged lymph nodes. BLADDER: Unremarkable. REPRODUCTIVE: Normal prostate BONES: No acute fracture. OTHER FINDINGS: None. IMPRESSION: No evidence of bowel obstruction. Unremarkable examination. The preliminary findings for this examination were reported by [facility] at 1:04 a.m. on 10/28/2018. There is concurrence of this report with the preliminary findings.
--- NOTE | 2018-10-28 14:46 | RAD ---
Date of service: 10/27/2018 PROCEDURE: Radiographs of the chest and abdomen (obstructive series) HISTORY: Abdominal pain. COMPARISON: No prior. TECHNIQUE: AP radiograph of the chest, with upright and supine radiographs of the abdomen. 3 views obtained. FINDINGS: CHEST: Lungs: Clear. Cardiovascular: Normal size heart. No pulmonary vascular congestion. No aortic atherosclerotic calcification present Pleura: No pleural fluid. No pneumothorax. Other findings: None. ABDOMEN AND PELVIS: Bowel: Constipation without fecal impaction or obstruction. Free air: None. Bones: Unremarkable. Other findings: None. IMPRESSION: Constipation without impaction. No evidence of mechanical bowel obstruction.
== END 2018-10-28 01:30 | disposition home or self-care (01) ==
LOC: H.ER 18:43
DX: R10.9 Unspecified abdominal pain (principal); K59.00 Constipation, unspecified; K76.0 Fatty (change of) liver, not elsewhere classified; Z88.0 Allergy status to penicillin
CPT/HCPCS: 74022; 74177; 80053; 83605; 83690; 85025; 87040; 96360; 99284; J1885; J7030; Q9966; Q9967